=== PATIENT | female | born 1985 | race Caucasian/White ===

== ENCOUNTER → 2017-01-09 | Outpatient (CLI) | payer BC ==
[~2017-01-09] MED LIST: IRON18TA PO; OXYC1TAB87 PO; PREN1TAB39 PO
[2017-01-09 18:20] VITALS: BP 117/78
--- NOTE | 2017-01-09 18:20 | Urgent Care T Sheet Gen (E) ---
Intake General Temperature (Fahrenheit): 98.0 Pulse: 89 Blood Pressure Systolic: 117 Blood Pressure Diastolic: 78 Respirations: 18 SPO2: 99 Chief Complaint: sore throat Source: Patient Exam Limitations: No limitations History of Present Illness Initial Comments Pt reports that she's had a sore throat for 2-3 days now. Her kids had strep throat last week, so she is concerned she may have caught it from them. She has felt a little feverish, but hasn't checked her temperature. She denies chills but says she has malaise. She has a cough, that begins with a tickle in her throat, and she has had a headache and felt a little nauseated. No runny nose, no significant drainage so far. Onset & Duration: Unsure, Days ("a couple") Timing: Still present Severity: Moderate Allergies: Coded Allergies: Sulfa(Sulfonamide Antibiotics) (Verified Allergy, Rash, 04/25/12) Home Meds Reported Medications Vits W-Ca,Fe,Fa(<1MG) ()1 Each Tablet1 Each PO DAILY 04/25/12 Respiratory Constitutional Symptoms: See HPINo Chills, Fever Malaise EENTM: See HPINo Eye pain, No Eye tearing, No Ear pain, No Ear discharge, No Nose Pain, Nose Congestion Throat painNo Mouth Pain Respiratory: See HPI CoughNo Short of breath, No Wheezing Cardiovascular: No symptoms reported Gastrointestinal/Abdominal: See HPI Nausea Genitourinary: No symptoms reported Estimated Date of Delivery: 03/23/14 Skin: No symptoms reported Neurological: See HPI Headache All Other Systems Reviewed Remaining Systems: All other systems reviewed with negative findings Past Fgjcgoi-Fdvynu-Pgewyz Hx Reproductive System : 2 Living Children: 1 HIV/AIDS: Negative Physical Exam Physical Exam General Appearance: WD/WN No apparent distress Eyes, Ears, Nose, Throat Ex: PERRL/EOMI Pharyngeal erythema (with clear drainage present)No Tonsillar exudate, Other (TMs bulging bilaterally with clear fluid present; mild erythema and swelling of nasal turbinates with clear fluid present) Neck Exam: Non tender Full range of motion Supple Normal inspection Normal thyroid Lymphadenopathy (anterior cervical nodes mildly swollen bilaterally, fluctuant, nontender to palpation) Respiratory Exam: Chest non-tender Lungs clear Normal breath sounds No respiratory distress Cardiovascular Exam: Regular rate, rhythm No murmur Skin Exam: Normal color Warm/dry/intact No rashes Neurologic/Psychiatric Exam: Oriented times 4 Mood/affect nml Lymphatic Exam: Other (see neck exam) Progress/Orders Lab Results Labs Results: Rapid Strep (negative) Departure Urgent Care Impression Chief Complaint: sore throat Impression: Primary Impression: Pharyngitis, acute Qualified Code: J02.9 - Acute pharyngitis, unspecified Additional Impression: Upper respiratory infection Qualified Code: J06.9 - Acute upper respiratory infection, unspecified Departure Disposition: 01 HOME OR SELF-CARE Condition: Stable Referrals: CARLEY ESCOBAR MD (PCP) Additional Instructions: Discussed with that her strep test was negative, and I see no signs of a bacterial infection at this point, but I do see signs of an upper respiratory infection causing fluid retention in her ears, and drainage down her throat, which may be the source of the cough and sore throat. She can take OTC cold medications, and I suggest a nasal steroid as well to help reduce the inflammation. Pt says she has one at home. If it is mostly viral, she should begin to recover from this within a week or so. If not improving, or if she is having more pain, dizziness, cough, sinus pressure, ear pain, or other concerning symptoms, she should follow up for further assessment and treatment. Pt states understanding and agrees to plan. All questions answered. End of report . NAV GUARDADO Jan 09, 2017 18:20
== END ==
LOC: MHUC 17:28
PROVIDERS: ATTEND Physician Assistant Medical
DX: J02.9 Acute pharyngitis, unspecified (principal); J06.9 Acute upper respiratory infection, unspecified
CPT/HCPCS: 87880; 99213